=== PATIENT | male | born 1955 | race Caucasian/White ===

== ENCOUNTER 2018-04-26 19:27 | Emergency (ER) | payer MEDICAID, SELFPAY ==
[2018-04-26 19:51] LABS: Add Manual Diff / Slide Review NO; Basophils Percent Auto 1.1 % (0-2); Eosinophils Percent Auto 1.1 % (2-4); Hematocrit 45.6 % (41-53); Hemoglobin 14.8 g/dL (13.5-17.5); Lymphocytes Percent Auto 59.3 % (25-40); Mean Corpuscular HGB Conc 32.6 % (30-36); Mean Corpuscular Hemoglobin 29.7 PG (26-34); Mean Corpuscular Volume 91.3 fL (80-100); Neutrophils Absolute Auto 4200 /uL (1500-7000); Neutrophils Percent Auto 33.5 % (50-75); Platelet Count 189 X10^3/uL (150-400); Red Blood Cell Count 4.99 X10^6/uL (4.5-5.9); Red Cell Distribution Width 13.8 % (11.6-14.8); White Blood Cell Count 12.5 X10^3/uL (4.5-11.0)
[2018-04-26 20:05] LABS: Alanine Aminotransferase 345 IU/L (21-72); Albumin 3.7 g/dL (3.5-5.0); Albumin Globulin Ratio 1.5 (1.0-2.8); Alkaline Phosphatase 68 U/L (38-126); Aspartate Aminotransferase 226 IU/L (17-59); BUN Creatinine Ratio 15.4 (6-22); Bilirubin Total 0.4 mg/dL (0.2-1.3); Blood Urea Nitrogen 20 mg/dL (9-20); Calcium 9.9 mg/dL (8.4-10.2); Carbon Dioxide 22 mmol/L (22-32); Chloride 105 mmol/L (98-107); Estimated Glomerular Filt Rate 55.6 mL/min (>60); Globulin 2.5 g/dL (1.7-4.1); Glucose 254 mg/dL (80-110); HEMOLYSIS 33 (0-50); Magnesium 2.6 mg/dL (1.6-2.3); Potassium 2.8 mmol/L (3.4-5.1); Sodium 140 mmol/L (137-145); Total Protein 6.2 g/dL (6.3-8.2)
--- NOTE | 2018-04-26 20:20 | ED.CPR ---
HPI - CPR General Chief Complaint: Unresponsive Stated Complaint: Unresponsive,cpr in progress Time Seen by Provider: 04/26/18 19:48 Source: family and EMS Mode of arrival: EMS Limitations: physical limitation History of Present Illness HPI narrative: 63M presents with EMS performing CPR. He was in his normal state of health while driving to a grocery store with his when he made an abnormal sound and then passed out. EMS was called and arrived within 2 min., 1st rhythm was VFib and patient was taken down ACLS protocol. He had 3 defibrillations prior to his arrival and 3 rounds of epinephrine. Amiodarone was administered prior to his arrival. CPR was in progress on arrival of patient has no significant medical history. No known cardiac history. No recent travel or recent illness. Only medication is losartan 100 mg. No recent changes in medications. No drug history. No recent surgeries. Majority of history obtained from at bedside. Patient had been taken through a total of 27 min of ACLS, all pulse checks in department were PE a until and organized rhythm with a pulse was noted in the 70s. His end-tidal bumped to the 30s and his skin pain cup and he became on mottled. Amiodarone drip was administered. Patient was intubated and IO placed complaint: found unresponsive Timing confirmed by: spouse Bystander CPR performed: No Downtime before ACLS arrival (mins): 2 Initial findings in the field: unresponsive ROSC in the field: No Known history of: other Treatments prior to arrival: intubation, chest compressions, defibrillated shocks #, epinephrine mgs # and amiodarone Related Data Home Medications Medication Instructions Recorded Confirmed losartan 100 mg tablet 100 mg PO DAILY 08/22/17 08/22/17 Previous Rx's Medication Instructions Recorded azithromycin 250 mg tablet See Label Instructions PO .COMPLEX 08/22/17 #6 tab Allergies Allergy/AdvReac Type Severity Reaction Status Date / Time Penicillins [PENICILLINS] Allergy Unknown Unverified 07/26/17 20:36 Review of Systems Review of Systems ROS Unobtainable: All systems reviewed & are unremarkable except as noted in HPI and below, Unobtainable due to medical condition and Unobtainable due to mental status/LOC Exam Narrative Exam Narrative: GENERAL: 63-year-old male, critically ill, intubated CPR in progress, mottling of extremities and abdomen HEAD: Atraumatic. Normocephalic. No temporal or scalp tenderness. EYES: Pupils equal round.No scleral icterus. No injection or drainage. ENT: Nose without bleeding, purulent drainage or septal hematoma. Throat without erythema, tonsillar hypertrophy or exudate. Uvula midline. Airway patent. NECK: Trachea midline. No JVD or lymphadenopathy. Supple, nontender, no meningeal signs. CARDIOVASCULAR: Asytole. CPR in progress RESPIRATORY: Clear to auscultation. Breath sounds equal bilaterally. No wheezes, rales, or rhonchi. Mechanical ventilation GASTROINTESTINAL: Abdomen soft, non-tender, nondistended. No hepato-splenomegaly, or palpable masses. No guarding. EXTREMITIES: No clubbing, cyanosis, or edema. No joint tenderness, effusion, or edema noted. BACK: Nontender without deformity or crepitance. No flank tenderness. NEURO: Sedated. on vent SKIN: mottling [facility] Medical History HTN (hypertension) (Acute) Social History Smoking Status: Current every day smoker (1/2 to 1 pack daily) Course Orders Ordered: ED Orders 04/26/18 19:41 RT Consult Eval and Treat STAT 04/26/18 19:48 Complete Blood Count AUTO DIFF Stat Comprehensive Metabolic Panel Stat Magnesium Stat Consultations Consultation #1: call to [facility] ED regarding ROSC s/p VFib arrest. They are unable to accept after consulting with interventional cardiology whom state he will not get cath tonight and there are no available beds next call to [facility]. in ICU is happy to accept patient after discussion of his presentation. Request for heparin drip and cooling protocol. Goals are to maintain core temp <36C. Patient is demonstrating movement of all extremities, will be sedated with Propofol push and then ativan/fentanyl. Amiodarone drip hanging. MDM - Cardiac Arrest/CPR Differential Diagnosis Likely acute massive pulmonary embolism and acute myocardial infarction Lab Data Result diagrams: 04/26/18 19:48 04/26/18 19:48 Lab Results 04/26/18 04/26/18 Range/Units 19:48 19:48 WBC 12.5 H (4.5-11.0) X10^3/uL RBC 4.99 (4.5-5.9) X10^6/uL Hgb 14.8 (13.5-17.5) g/dL Hct 45.6 (41-53) % MCV 91.3 (80-100) fL MCH 29.7 (26-34) PG MCHC 32.6 (30-36) % RDW 13.8 (11.6-14.8) % Plt Count 189 (150-400) X10^3/uL Neut % (Auto) 33.5 L (50-75) % Lymph % (Auto) 59.3 H (25-40) % [place] % (Auto) 5.0 (3-14) % Eos % (Auto) 1.1 L (2-4) % Baso % (Auto) 1.1 (0-2) % Neut # (Auto) 4200 (5653-4116) /uL Sodium 140 (137-145) mmol/L Potassium 2.8 L (3.4-5.1) mmol/L Chloride 105 (98-107) mmol/L Carbon Dioxide 22 (22-32) mmol/L BUN 20 (9-20) mg/dL Creatinine 1.30 H (0.66-1.25) mg/dL Estimated GFR 55.6 L (>60) mL/min BUN/Creatinine Ratio 15.4 (6-22) Glucose 254 H (80-110) mg/dL Calcium 9.9 (8.4-10.2) mg/dL Magnesium 2.6 H (1.6-2.3) mg/dL Total Bilirubin 0.4 (0.2-1.3) mg/dL AST 226 H (17-59) IU/L ALT 345 H (21-72) IU/L Alkaline Phosphatase 68 (38-126) U/L Total Protein 6.2 L (6.3-8.2) g/dL Albumin 3.7 (3.5-5.0) g/dL Globulin 2.5 (1.7-4.1) g/dL Albumin/Globulin Ratio 1.5 (1.0-2.8) ECG Data Attestation: I personally reviewed and interpreted this ECG as follows: Prior ECG tracings: not available for review Interpretation: Atrial Fib @ 73, no ST elevations or obvious ischemic change Critical Care Time Critical Care Time: Yes Total Critical Care Time: 30 Attestation: The high probability of a clinically significant, sudden or life threatening deterioration of the [cardiovascular] system(s) required my full and direct attention, intervention and personal management. The aggregate critical care time was [30] minutes. This time is in addition to time spent performing reported procedures but includes the following: [x] Data Review and interpretation [x] Patient assessment and monitoring of vital signs [x] Documentation [x] Medication orders and management Discharge Plan Departure Patient Disposition: [facility] Clinical Impression: Cardiopulmonary arrest with successful resuscitation Prescriptions: No Action losartan 100 mg tablet 100 mg PO DAILY RF: 0 azithromycin 250 mg tablet See Label Instructions PO .COMPLEX Qty: 6 RF: 0
--- NOTE | 2018-04-26 20:29 | ED_ITS ---
HPI - CPR General Chief Complaint: Unresponsive Stated Complaint: Unresponsive,cpr in progress Time Seen by Provider: 04/26/18 19:48 Source: family and EMS Mode of arrival: EMS Limitations: physical limitation History of Present Illness HPI narrative: 63M presents with EMS performing CPR. He was in his normal state of health while driving to a grocery store with his when he made an abnormal sound and then passed out. EMS was called and arrived within 2 min., 1st rhythm was VFib and patient was taken down ACLS protocol. He had 3 defibrillations prior to his arrival and 3 rounds of epinephrine. Amiodarone was administered prior to his arrival. CPR was in progress on arrival of patient has no significant medical history. No known cardiac history. No recent travel or recent illness. Only medication is losartan 100 mg. No recent changes in medications. No drug history. No recent surgeries. Majority of history obtained from at bedside. Patient had been taken through a total of 27 min of ACLS, all pulse checks in department were PE a until and organized rhythm with a pulse was noted in the 70s. His end-tidal bumped to the 30s and his skin pain cup and he became on mottled. Amiodarone drip was administered. Patient was intubated and IO placed complaint: found unresponsive Timing confirmed by: spouse Bystander CPR performed: No Downtime before ACLS arrival (mins): 2 Initial findings in the field: unresponsive ROSC in the field: No Known history of: other Treatments prior to arrival: intubation, chest compressions, defibrillated shocks #, epinephrine mgs # and amiodarone Related Data Home Medications Medication Instructions Recorded Confirmed losartan 100 mg tablet 100 mg PO DAILY 08/22/17 08/22/17 Previous Rx's Medication Instructions Recorded azithromycin 250 mg tablet See Label Instructions PO .COMPLEX 08/22/17 #6 tab Allergies Allergy/AdvReac Type Severity Reaction Status Date / Time Penicillins [PENICILLINS] Allergy Unknown Unverified 07/26/17 20:36 Review of Systems Review of Systems ROS Unobtainable: All systems reviewed & are unremarkable except as noted in HPI and below, Unobtainable due to medical condition and Unobtainable due to mental status/LOC Exam Narrative Exam Narrative: GENERAL: 63-year-old male, critically ill, intubated CPR in progress, mottling of extremities and abdomen HEAD: Atraumatic. Normocephalic. No temporal or scalp tenderness. EYES: Pupils equal round.No scleral icterus. No injection or drainage. ENT: Nose without bleeding, purulent drainage or septal hematoma. Throat without erythema, tonsillar hypertrophy or exudate. Uvula midline. Airway patent. NECK: Trachea midline. No JVD or lymphadenopathy. Supple, nontender, no meningeal signs. CARDIOVASCULAR: Asytole. CPR in progress RESPIRATORY: Clear to auscultation. Breath sounds equal bilaterally. No wheezes , rales, or rhonchi. Mechanical ventilation GASTROINTESTINAL: Abdomen soft, non-tender, nondistended. No hepato-splenomegaly , or palpable masses. No guarding. EXTREMITIES: No clubbing, cyanosis, or edema. No joint tenderness, effusion, or edema noted. BACK: Nontender without deformity or crepitance. No flank tenderness. NEURO: Sedated. on vent SKIN: mottling [facility] Medical History HTN (hypertension) (Acute) Social History Smoking Status: Current every day smoker (1/2 to 1 pack daily) Course Orders Ordered: ED Orders 04/26/18 19:41 RT Consult Eval and Treat STAT 04/26/18 19:48 Complete Blood Count AUTO DIFF Stat Comprehensive Metabolic Panel Stat Magnesium Stat Consultations Consultation #1: call to [facility] ED regarding ROSC s/p VFib arrest. They are unable to accept after consulting with interventional cardiology whom state he will not get cath tonight and there are no available beds next call to [facility]. in ICU is happy to accept patient after discussion of his presentation. Request for heparin drip and cooling protocol. Goals are to maintain core temp <36C. Patient is demonstrating movement of all extremities, will be sedated with Propofol push and then ativan/fentanyl. Amiodarone drip hanging. MDM - Cardiac Arrest/CPR Differential Diagnosis Likely acute massive pulmonary embolism and acute myocardial infarction Lab Data Result diagrams: 04/26/18 19:48 04/26/18 19:48 Lab Results 04/26/18 04/26/18 Range/Units 19:48 19:48 WBC 12.5 H (4.5-11.0) X10^3/uL RBC 4.99 (4.5-5.9) X10^6/uL Hgb 14.8 (13.5-17.5) g/dL Hct 45.6 (41-53) % MCV 91.3 (80-100) fL MCH 29.7 (26-34) PG MCHC 32.6 (30-36) % RDW 13.8 (11.6-14.8) % Plt Count 189 (150-400) X10^3/uL Neut % (Auto) 33.5 L (50-75) % Lymph % (Auto) 59.3 H (25-40) % [place] % (Auto) 5.0 (3-14) % Eos % (Auto) 1.1 L (2-4) % Baso % (Auto) 1.1 (0-2) % Neut # (Auto) 4200 (6548-8006) /uL Sodium 140 (137-145) mmol/L Potassium 2.8 L (3.4-5.1) mmol/L Chloride 105 (98-107) mmol/L Carbon Dioxide 22 (22-32) mmol/L BUN 20 (9-20) mg/dL Creatinine 1.30 H (0.66-1.25) mg/dL Estimated GFR 55.6 L (>60) mL/min BUN/Creatinine Ratio 15.4 (6-22) Glucose 254 H (80-110) mg/dL Calcium 9.9 (8.4-10.2) mg/dL Magnesium 2.6 H (1.6-2.3) mg/dL Total Bilirubin 0.4 (0.2-1.3) mg/dL AST 226 H (17-59) IU/L ALT 345 H (21-72) IU/L Alkaline Phosphatase 68 (38-126) U/L Total Protein 6.2 L (6.3-8.2) g/dL Albumin 3.7 (3.5-5.0) g/dL Globulin 2.5 (1.7-4.1) g/dL Albumin/Globulin Ratio 1.5 (1.0-2.8) ECG Data Attestation: I personally reviewed and interpreted this ECG as follows: Prior ECG tracings: not available for review Interpretation: Atrial Fib @ 73, no ST elevations or obvious ischemic change Critical Care Time Critical Care Time: Yes Total Critical Care Time: 30 Attestation: The high probability of a clinically significant, sudden or life threatening deterioration of the [cardiovascular] system(s) required my full and direct attention, intervention and personal management. The aggregate critical care time was [30] minutes. This time is in addition to time spent performing reported procedures but includes the following: [x] Data Review and interpretation [x] Patient assessment and monitoring of vital signs [x] Documentation [x] Medication orders and management Discharge Plan Departure Patient Disposition: [facility] Clinical Impression: Cardiopulmonary arrest with successful resuscitation Prescriptions: No Action losartan 100 mg tablet 100 mg PO DAILY RF: 0 azithromycin 250 mg tablet See Label Instructions PO .COMPLEX Qty: 6 RF: 0
[2018-04-26 21:10] VITALS: BP 129/80; PULSE 80; RESP 24; O2SAT 100
== END 2018-04-26 21:13 | disposition short-term general hospital (02) ==
PROVIDERS: Emergency Provider Emergency Medicine
DX: I46.9 Cardiac arrest, cause unspecified (principal)
CPT/HCPCS: 80053; 83735; 85025; 93005; 99282; 99291; 99292; J0171; J0282; J1644; J2060; J2704; J3010

== ENCOUNTER 2018-09-03 11:18 | Emergency (ER) | payer OTHER, MEDICAID, SELFPAY ==
[2018-09-03] VITALS (10 sets, daily range): BP systolic 133–160; BP diastolic 61–90; PULSE 64–79; RESP 14–22; TEMP 36.7; O2SAT 98–100
--- NOTE | 2018-09-03 11:26 | DI.RAD.S_ITS ---
PROCEDURE: XR CHEST 1V INDICATIONS: chest pain TECHNIQUE: One view of the chest was acquired. COMPARISON: None. FINDINGS: Surgical changes and devices: Prior CABG.. Lungs and pleura: Lungs are clear. No pleural effusions or pneumothorax. Mediastinum: Mediastinal contours appear normal. Heart size is normal. Bones and chest wall: No suspicious bony lesions. Overlying soft tissues appear unremarkable. IMPRESSION: Prior sternotomy wires, presumed prior CABG, no acute disease, source of chest pain is not seen. Dictated by: Guillaume Dumont M.D. on 09/03/2018 at 12:02 Approved by: Guillaume Dumont M.D. on 09/03/2018 at 12:02
[2018-09-03 11:39] LABS: Add Manual Diff / Slide Review NO; Basophils Absolute Auto 100 /uL (0-100); Eosinophils Absolute Auto 200 /uL (0-450); Eosinophils Percent Auto 2.7 % (2-4); Hemoglobin 13.8 g/dL (13.5-17.5); Lymphocytes Absolute Auto 2500 /uL (1100-4500); Lymphocytes Percent Auto 29.5 % (25-40); Mean Corpuscular HGB Conc 32.9 % (30-36); Mean Corpuscular Hemoglobin 27.9 PG (26-34); Monocytes Absolute Auto 600 /uL (0-900); Monocytes Percent Auto 7.1 % (3-14); Neutrophils Absolute Auto 5100 /uL (1500-7000); Neutrophils Percent Auto 59.7 % (50-75); Platelet Count 223 X10^3/uL (150-400); Red Blood Cell Count 4.94 X10^6/uL (4.5-5.9); Red Cell Distribution Width 15.5 % (11.6-14.8); White Blood Cell Count 8.6 X10^3/uL (4.5-11.0)
[2018-09-03 11:46] LABS: INR 1.3 (0.9-1.3); Prothrombin Time 15.2 SECONDS (10.1-12.7)
[2018-09-03 11:49] LABS: PTT Partial Thromboplastin Tim 31 SECONDS (26.4-36.2)
[2018-09-03 11:50] LABS: Alanine Aminotransferase 40 IU/L (21-72); Albumin 4.7 g/dL (3.5-5.0); Albumin Globulin Ratio 1.5 (1.0-2.8); Alkaline Phosphatase 94 U/L (38-126); Aspartate Aminotransferase 24 IU/L (17-59); BUN Creatinine Ratio 16.9 (6-22); Bilirubin Total 0.6 mg/dL (0.2-1.3); Blood Urea Nitrogen 22 mg/dL (9-20); Carbon Dioxide 29 mmol/L (22-32); Chloride 97 mmol/L (98-107); Creatine Kinase 66 U/L (55-170); Estimated Glomerular Filt Rate 55.6 mL/min (>60); Globulin 3.1 g/dL (1.7-4.1); Glucose 143 mg/dL (80-110); HEMOLYSIS < 15 (0-50); Lipase 47 U/L (23-300); Potassium 4.4 mmol/L (3.4-5.1); Sodium 136 mmol/L (137-145); Total Protein 7.8 g/dL (6.3-8.2)
[2018-09-03 12:02] LABS: Troponin I < 0.012 ng/mL (0.01-0.034)
[2018-09-03 14:37] LABS: Troponin I < 0.012 ng/mL (0.01-0.034)
--- NOTE | 2018-09-03 14:46 | ED.SYNCOPE ---
HPI - Syncope General Chief Complaint: Chest Pain Stated Complaint: chest Time Seen by Provider: 09/03/18 14:22 Source: patient Mode of arrival: ambulatory Limitations: no limitations History of Present Illness HPI narrative: This is a 63-year-old male comes to the emergency department with complaint of lightheadedness, feeling sweaty and clammy and like he might pass out. Patient denies any chest pain or pressure denies any shortness of breath. He did feel nauseated. This occurred while he was at cardiac rehab. He states he spent some time on the elliptical machines, he was doing weightlifting and doing either bicep curls or rows with 5 lb weights. Patient states that he 69 headache, no vision changes. He states he did not pass out. He is feeling much better afterwards. Patient states that about a week ago he did have a little bit of dominant pain and had a headache but that resolved after a couple hours he has not had any further. He did not have much of a breakfast any states the 1 other time he has had this happen gandara in a similar situation he did have a cardiac arrest with CPR and return of circulation. This was in April on the . He had a CABG with 5 vessels on June 11. He quit smoking after his cardiac arrest in April. He has not had any alcohol since. He does not use any illicit. He sees Dr. Mazariegos for Cardiology through telling him and Dr. Degroot for primary care. Related Data Home Medications Medication Instructions Recorded Confirmed amlodipine 10 mg PO DAILY 09/03/18 09/03/18 apixaban [Eliquis] 5 mg PO BID 09/03/18 09/03/18 aspirin 81 mg PO DAILY 09/03/18 09/03/18 atorvastatin 80 mg PO QPM 09/03/18 09/03/18 losartan 6.25 mg PO QPM 09/03/18 09/03/18 magnesium oxide 400 mg PO BID 09/03/18 09/03/18 metformin 500 mg PO BID 09/03/18 09/03/18 metoprolol succinate 25 mg PO DAILY 09/03/18 09/03/18 Allergies Allergy/AdvReac Type Severity Reaction Status Date / Time Penicillins [PENICILLINS] Allergy Unknown Unverified 07/26/17 20:36 Review of Systems Review of Systems ROS Unobtainable: All systems reviewed & are unremarkable except as noted in HPI and below Constitutional Denies chills, Denies fever(s), Denies headache(s), Denies lethargy and Denies weakness ENT Ears, Nose, Mouth, and Throat: Denies headache(s) Cardiovascular Denies chest pain, Reports diaphoresis, Denies syncope, Denies edema, Denies irregular heart rhythm, Denies leg edema, Reports lightheadedness, Denies radiating jaw, neck or arm pain, Denies palpitations, Denies dyspnea, Denies dyspnea on exertion and Denies orthopnea Respiratory Denies change in phlegm color, Denies chest congestion, Denies cough, Denies dyspnea and Denies dyspnea on exertion Gastrointestinal Gastrointestinal: Denies abdominal pain, Denies change in bowel habits, Denies diarrhea, Reports nausea (Resolved) and Denies vomiting Genitourinary Denies hematuria, Denies flank pain and Denies urinary urgency Neurologic Reports as per HPI, Denies confusion, Denies syncope, Denies headache(s) and Denies weakness Psychiatric Denies confusion Endocrine Denies palpitations [facility] Medical History (Updated 09/03/18 @ 15:01 by Tiff Escobar DO) Cardiac arrest with successful resuscitation (Resolved) HTN (hypertension) (Acute) Surgical History (Updated 09/03/18 @ 11:26 by Lilli Sellers RN) S/P CABG x 5 (Acute) Social History (Updated 09/03/18 @ 14:53 by Tiff Escobar DO) Smoking Status: Former smoker alcohol intake: former substance use type: does not use Social History (Updated 09/03/18 @ 14:53 by Tiff Escobar DO) Smoking Status: Former smoker alcohol intake: former substance use type: does not use Exam Narrative Exam Narrative: GENERAL: Alert and oriented x three, well-nourished male in no acute distress. HEENT: Head normocephalic, atraumatic, EOMI, pupils reactive, face symmetric, moist mucous membranes NECK: Supple, full range of motion CARDIOVASCULAR: Regular rate and rhythm without murmurs, rubs or gallops. RESPIRATORY: Breath sounds equal bilaterally, no wheezes rales or rhonchi. ABDOMEN: Soft, nontender. Normoactive bowel sounds all 4 quadrants. No guarding or rebound, rigidity, no mass : No CVA tenderness EXTREMITIES: Normal range of motion, no clubbing or edema. Neurovascularly intact NEUROLOGICAL: Cranial nerves II through XII grossly intact. Moving all extremities SKIN: Warm, dry, no petechiae, no rashes or lesions. Initial Vital Signs Initial Vital Signs: Vital Signs Pulse Rate 73 09/03/18 11:20 Respiratory Rate 22 09/03/18 11:20 Blood Pressure 151/82 H 09/03/18 11:20 Pulse Oximetry 100 09/03/18 11:20 Scores GCS Fredy coma scale eye opening: Spontaneous Fredy coma scale verbal response: Orientated Fredy coma scale motor response: Obey commands [place] coma scale total score: 15 Course Orders Ordered: ED Orders 09/03/18 11:20 EKG-12 Lead Stat 09/03/18 11:26 XR chest 1V Stat 09/03/18 11:32 Complete Blood Count AUTO DIFF Stat Comprehensive Metabolic Panel Stat Lipase Stat Partial Thromboplastin Time Stat Prothrombin Time INR Stat Troponin & CK Cardiac Panel Stat 09/03/18 14:04 Trop I [Troponin I] Stat EKG-12 Lead Stat Vital Signs - 8 hr 09/03/18 11:20 09/03/18 11:26 09/03/18 11:30 Temperature 98.0 F Pulse Rate 73 68 Respiratory Rate 22 21 Blood Pressure 151/82 H Blood Pressure [Right Arm] 141/78 H Pulse Oximetry 100 99 09/03/18 12:00 09/03/18 12:30 09/03/18 13:00 Temperature Pulse Rate 67 64 73 Respiratory Rate 18 18 16 Blood Pressure Blood Pressure [Right Arm] 158/61 H 148/79 H 160/82 H Pulse Oximetry 98 98 100 09/03/18 13:30 09/03/18 14:00 09/03/18 14:32 Temperature Pulse Rate 74 78 79 Respiratory Rate 19 18 16 Blood Pressure Blood Pressure [Right Arm] 158/76 H 151/81 H 160/90 H Pulse Oximetry 98 98 100 09/03/18 15:12 Temperature Pulse Rate 73 Respiratory Rate 14 Blood Pressure 133/77 Blood Pressure [Right Arm] Pulse Oximetry 98 MDM - Syncope Lab Data Attestation: I reviewed the patient's lab results. Result diagrams: 09/03/18 11:32 09/03/18 11:32 Lab Results 09/03/18 09/03/18 09/03/18 Range/Units 11:32 11:32 11:32 WBC 8.6 (4.5-11.0) X10^3/uL RBC 4.94 (4.5-5.9) X10^6/uL Hgb 13.8 (13.5-17.5) g/dL Hct 42.0 (41-53) % MCV 85.0 (80-100) fL MCH 27.9 (26-34) PG MCHC 32.9 (30-36) % RDW 15.5 H (11.6-14.8) % Plt Count 223 (150-400) X10^3/uL Neut % (Auto) 59.7 (50-75) % Lymph % (Auto) 29.5 (25-40) % Bertie % (Auto) 7.1 (3-14) % Eos % (Auto) 2.7 (2-4) % Baso % (Auto) 1.0 (0-2) % Neut # (Auto) 5100 (7981-7579) /uL Lymph # (Auto) 2500 (8953-3545) /uL Bertie # (Auto) 600 (0-900) /uL Eos # (Auto) 200 (0-450) /uL Baso # (Auto) 100 (0-100) /uL PT 15.2 H (10.1-12.7) SECONDS INR 1.3 (0.9-1.3) APTT 31 (26.4-36.2) SECONDS Sodium 136 L (137-145) mmol/L Potassium 4.4 (3.4-5.1) mmol/L Chloride 97 L (98-107) mmol/L Carbon Dioxide 29 (22-32) mmol/L BUN 22 H (9-20) mg/dL Creatinine 1.30 H (0.66-1.25) mg/dL Estimated GFR 55.6 L (>60) mL/min BUN/Creatinine Ratio 16.9 (6-22) Glucose 143 H (80-110) mg/dL Calcium 10.0 (8.4-10.2) mg/dL Total Bilirubin 0.6 (0.2-1.3) mg/dL AST 24 (17-59) IU/L ALT 40 (21-72) IU/L Alkaline Phosphatase 94 (38-126) U/L Total Creatine Kinase 66 (55-170) U/L CK-MB (CK-2) TNP CK-MB (CK-2) Rel Index TNP Troponin I < 0.012 (0.01-0.034) ng/mL Total Protein 7.8 (6.3-8.2) g/dL Albumin 4.7 (3.5-5.0) g/dL Globulin 3.1 (1.7-4.1) g/dL Albumin/Globulin Ratio 1.5 (1.0-2.8) Lipase 47 (23-300) U/L // Range/Units 14:04 WBC (4.5-11.0) X10^3/uL RBC (4.5-5.9) X10^6/uL Hgb (13.5-17.5) g/dL Hct (41-53) % MCV (80-100) fL MCH (26-34) PG MCHC (30-36) % RDW (11.6-14.8) % Plt Count (150-400) X10^3/uL Neut % (Auto) (50-75) % Lymph % (Auto) (25-40) % Bertie % (Auto) (3-14) % Eos % (Auto) (2-4) % Baso % (Auto) (0-2) % Neut # (Auto) (8942-8225) /uL Lymph # (Auto) (4610-2589) /uL Bertie # (Auto) (0-900) /uL Eos # (Auto) (0-450) /uL Baso # (Auto) (0-100) /uL PT (10.1-12.7) SECONDS INR (0.9-1.3) APTT (26.4-36.2) SECONDS Sodium (137-145) mmol/L Potassium (3.4-5.1) mmol/L Chloride (98-107) mmol/L Carbon Dioxide (22-32) mmol/L BUN (9-20) mg/dL Creatinine (0.66-1.25) mg/dL Estimated GFR (>60) mL/min BUN/Creatinine Ratio (6-22) Glucose (80-110) mg/dL Calcium (8.4-10.2) mg/dL Total Bilirubin (0.2-1.3) mg/dL AST (17-59) IU/L ALT (21-72) IU/L Alkaline Phosphatase (38-126) U/L Total Creatine Kinase (55-170) U/L CK-MB (CK-2) CK-MB (CK-2) Rel Index Troponin I < 0.012 (0.01-0.034) ng/mL Total Protein (6.3-8.2) g/dL Albumin (3.5-5.0) g/dL Globulin (1.7-4.1) g/dL Albumin/Globulin Ratio (1.0-2.8) Lipase (23-300) U/L Imaging Data Chest x-ray: Radiologist's impression: [address] [id number] XRay Report Signed Patient: Duc Hughes RMR#: [id number] : 4Acct:[id number] Age/Sex: 63 / MDate of Service: 09/03/18 Loc: ED Accession Number: [id number] Procedure: XR chest 1V Ordering Provider: Tiff Escobar D.O. PROCEDURE: XR CHEST 1V INDICATIONS: chest pain TECHNIQUE: One view of the chest was acquired. COMPARISON: None. FINDINGS: Surgical changes and devices: Prior CABG.. Lungs and pleura: Lungs are clear. No pleural effusions or pneumothorax. Mediastinum: Mediastinal contours appear normal. Heart size is normal. Bones and chest wall: No suspicious bony lesions. Overlying soft tissues appear unremarkable. IMPRESSION: Prior sternotomy wires, presumed prior CABG, no acute disease, source of chest pain is not seen. Dictated by: Guillaume Dumont M.D. on 09/03/2018 at 12:02 Approved by: Guillaume Dumont M.D. on 09/03/2018 at 12:02 ECG Data Attestation: I personally reviewed and interpreted this ECG as follows: Prior ECG tracings: available for review Interpretation: Sinus rhythm with first-degree AV block with a rate of 71 P are interval 235 QRS of 112 and QTC of 448. Patient has Q-waves in 2 3 AVF along with T-wave inversions in 2 3 AVF and V5 V6. Patient has a prior EKG from July 10, 2018 from his cardiology office. This EKG appears similar to today's with no new changes. EKG 2. Appears similar to the 1st to with a sinus rhythm with first-degree AV block. Patient has a rate of 73, P are 267 QRS of 112 and QTC of 455. Patient has Q-waves in 2 3 and AVF. T-wave inversion in to 3 and AVF along with V5 V6. No ST elevation noted in either EKGs an EKG appears similar to prior. MDM Narrative Medical decision making narrative: Patient is feeling much better. Lab work does not show any acute changes to his renal function. Normal electrolytes except for sodium 136 chloride 97, BUN slightly elevated at 22, CBC does not show any acute anemia or leukocytosis. Patient's glucose is would 43, LFTs and troponin x2 are normal. Patient's chest x-ray does not show any acute changes does show changes consistent with his prior sternotomy. Discussed with patient he was able to ambulate back and forth to the bathroom without any major issue. He has not had any chest pain or shortness of breath, he had lightheadedness but no true syncope. Without any other acute findings plan for DC home but I did ask him to contact his corporate event planner to make sure they want him to continue with his rehab. He has an appointment on the 12 of September and I asked him did chat with them to see if they would like him to be seen sooner. Discharge Plan Departure Patient Disposition: Home Clinical Impression: Lightheadedness Discharge Date/Time: 09/03/18 15:13 Interventions: ED Discharge Assessment Last Done: 09/03/18 15:12 Instructions: DI for Syncope in Adults (Fainting) Activity Restrictions/Additional Instructions: Call to set up follow-up with your corporate event planner, ask if they would like you to be seen sooner. Also discuss if they would like any modifications to your cardiac rehab were if you can return to your normal schedule. Continue your home medications as prescribed. Return to the emergency department for fevers greater than 100.4 F, recurrent symptoms, passing out, persistent vomiting, new chest pain, back pain or abdominal pain, black or bloody stools or other new or concerning symptoms. Prescriptions: No Action metformin 500 mg tablet 500 mg PO BID RF: 0 atorvastatin 80 mg tablet 80 mg PO QPM RF: 0 aspirin 81 mg tablet,delayed release (DR/EC) 81 mg PO DAILY RF: 0 magnesium oxide 400 mg (241.3 mg magnesium) tablet 400 mg PO BID RF: 0 amlodipine 10 mg tablet 10 mg PO DAILY RF: 0 losartan 25 mg tablet 6.25 mg PO QPM RF: 0 metoprolol succinate 25 mg tablet extended release 24 hr 25 mg PO DAILY RF: 0 Eliquis 5 mg tablet 5 mg PO BID RF: 0 Referrals: Arturo Regalado MD [Primary Care Provider] -
--- NOTE | 2018-09-03 15:01 | ED_ITS ---
HPI - Syncope General Chief Complaint: Chest Pain Stated Complaint: chest Time Seen by Provider: 09/03/18 14:22 Source: patient Mode of arrival: ambulatory Limitations: no limitations History of Present Illness HPI narrative: This is a 63-year-old male comes to the emergency department with complaint of lightheadedness, feeling sweaty and clammy and like he might pass out. Patient denies any chest pain or pressure denies any shortness of breath. He did feel nauseated. This occurred while he was at cardiac rehab. He states he spent some time on the elliptical machines, he was doing weightlifting and doing either bicep curls or rows with 5 lb weights. Patient states that he 69 headache, no vision changes. He states he did not pass out. He is feeling much better afterwards. Patient states that about a week ago he did have a little bit of dominant pain and had a headache but that resolved after a couple hours he has not had any further. He did not have much of a breakfast any states the 1 other time he has had this happen gandara in a similar situation he did have a cardiac arrest with CPR and return of circulation. This was in April on the . He had a CABG with 5 vessels on June 11. He quit smoking after his cardiac arrest in April. He has not had any alcohol since. He does not use any illicit. He sees Dr. Mazariegos for Cardiology through telling him and Dr. Degroot for primary care. Related Data Home Medications Medication Instructions Recorded Confirmed amlodipine 10 mg PO DAILY 09/03/18 09/03/18 apixaban [Eliquis] 5 mg PO BID 09/03/18 09/03/18 aspirin 81 mg PO DAILY 09/03/18 09/03/18 atorvastatin 80 mg PO QPM 09/03/18 09/03/18 losartan 6.25 mg PO QPM 09/03/18 09/03/18 magnesium oxide 400 mg PO BID 09/03/18 09/03/18 metformin 500 mg PO BID 09/03/18 09/03/18 metoprolol succinate 25 mg PO DAILY 09/03/18 09/03/18 Allergies Allergy/AdvReac Type Severity Reaction Status Date / Time Penicillins [PENICILLINS] Allergy Unknown Unverified 07/26/17 20:36 Review of Systems Review of Systems ROS Unobtainable: All systems reviewed & are unremarkable except as noted in HPI and below Constitutional Denies chills, Denies fever(s), Denies headache(s), Denies lethargy and Denies weakness ENT Ears, Nose, Mouth, and Throat: Denies headache(s) Cardiovascular Denies chest pain, Reports diaphoresis, Denies syncope, Denies edema, Denies irregular heart rhythm, Denies leg edema, Reports lightheadedness, Denies radiating jaw, neck or arm pain, Denies palpitations, Denies dyspnea, Denies dyspnea on exertion and Denies orthopnea Respiratory Denies change in phlegm color, Denies chest congestion, Denies cough, Denies dyspnea and Denies dyspnea on exertion Gastrointestinal Gastrointestinal: Denies abdominal pain, Denies change in bowel habits, Denies diarrhea, Reports nausea (Resolved) and Denies vomiting Genitourinary Denies hematuria, Denies flank pain and Denies urinary urgency Neurologic Reports as per HPI, Denies confusion, Denies syncope, Denies headache(s) and Denies weakness Psychiatric Denies confusion Endocrine Denies palpitations [facility] Medical History (Updated 09/03/18 @ 15:01 by Tiff Escobar DO) Cardiac arrest with successful resuscitation (Resolved) HTN (hypertension) (Acute) Surgical History (Updated 09/03/18 @ 11:26 by Lilli Sellers RN) S/P CABG x 5 (Acute) Social History (Updated 09/03/18 @ 14:53 by Tiff Escobar DO) Smoking Status: Former smoker alcohol intake: former substance use type: does not use Social History (Updated 09/03/18 @ 14:53 by Tiff Escobar DO) Smoking Status: Former smoker alcohol intake: former substance use type: does not use Exam Narrative Exam Narrative: GENERAL: Alert and oriented x three, well-nourished male in no acute distress. HEENT: Head normocephalic, atraumatic, EOMI, pupils reactive, face symmetric, moist mucous membranes NECK: Supple, full range of motion CARDIOVASCULAR: Regular rate and rhythm without murmurs, rubs or gallops. RESPIRATORY: Breath sounds equal bilaterally, no wheezes rales or rhonchi. ABDOMEN: Soft, nontender. Normoactive bowel sounds all 4 quadrants. No guarding or rebound, rigidity, no mass : No CVA tenderness EXTREMITIES: Normal range of motion, no clubbing or edema. Neurovascularly intact NEUROLOGICAL: Cranial nerves II through XII grossly intact. Moving all extremities SKIN: Warm, dry, no petechiae, no rashes or lesions. Initial Vital Signs Initial Vital Signs: Vital Signs Pulse Rate 73 09/03/18 11:20 Respiratory Rate 22 09/03/18 11:20 Blood Pressure 151/82 H 09/03/18 11:20 Pulse Oximetry 100 09/03/18 11:20 Scores GCS Fredy coma scale eye opening: Spontaneous Fredy coma scale verbal response: Orientated Fredy coma scale motor response: Obey commands Costilla coma scale total score: 15 Course Orders Ordered: ED Orders 09/03/18 11:20 EKG-12 Lead Stat 09/03/18 11:26 XR chest 1V Stat 09/03/18 11:32 Complete Blood Count AUTO DIFF Stat Comprehensive Metabolic Panel Stat Lipase Stat Partial Thromboplastin Time Stat Prothrombin Time INR Stat Troponin & CK Cardiac Panel Stat 09/03/18 14:04 Trop I [Troponin I] Stat EKG-12 Lead Stat Vital Signs - 8 hr 09/03/18 11:20 09/03/18 11:26 09/03/18 11:30 Temperature 98.0 F Pulse Rate 73 68 Respiratory Rate 22 21 Blood Pressure 151/82 H Blood Pressure [Right Arm] 141/78 H Pulse Oximetry 100 99 09/03/18 12:00 09/03/18 12:30 09/03/18 13:00 Temperature Pulse Rate 67 64 73 Respiratory Rate 18 18 16 Blood Pressure Blood Pressure [Right Arm] 158/61 H 148/79 H 160/82 H Pulse Oximetry 98 98 100 09/03/18 13:30 09/03/18 14:00 09/03/18 14:32 Temperature Pulse Rate 74 78 79 Respiratory Rate 19 18 16 Blood Pressure Blood Pressure [Right Arm] 158/76 H 151/81 H 160/90 H Pulse Oximetry 98 98 100 09/03/18 15:12 Temperature Pulse Rate 73 Respiratory Rate 14 Blood Pressure 133/77 Blood Pressure [Right Arm] Pulse Oximetry 98 MDM - Syncope Lab Data Attestation: I reviewed the patient's lab results. Result diagrams: 09/03/18 11:32 09/03/18 11:32 Lab Results 09/03/18 09/03/18 09/03/18 Range/Units 11:32 11:32 11:32 WBC 8.6 (4.5-11.0) X10^3/uL RBC 4.94 (4.5-5.9) X10^6/uL Hgb 13.8 (13.5-17.5) g/dL Hct 42.0 (41-53) % MCV 85.0 (80-100) fL MCH 27.9 (26-34) PG MCHC 32.9 (30-36) % RDW 15.5 H (11.6-14.8) % Plt Count 223 (150-400) X10^3/uL Neut % (Auto) 59.7 (50-75) % Lymph % (Auto) 29.5 (25-40) % [place] % (Auto) 7.1 (3-14) % Eos % (Auto) 2.7 (2-4) % Baso % (Auto) 1.0 (0-2) % Neut # (Auto) 5100 (8169-8528) /uL Lymph # (Auto) 2500 (2161-8779) /uL [place]ard # (Auto) 600 (0-900) /uL Eos # (Auto) 200 (0-450) /uL Baso # (Auto) 100 (0-100) /uL PT 15.2 H (10.1-12.7) SECONDS INR 1.3 (0.9-1.3) APTT 31 (26.4-36.2) SECONDS Sodium 136 L (137-145) mmol/L Potassium 4.4 (3.4-5.1) mmol/L Chloride 97 L (98-107) mmol/L Carbon Dioxide 29 (22-32) mmol/L BUN 22 H (9-20) mg/dL Creatinine 1.30 H (0.66-1.25) mg/dL Estimated GFR 55.6 L (>60) mL/min BUN/Creatinine Ratio 16.9 (6-22) Glucose 143 H (80-110) mg/dL Calcium 10.0 (8.4-10.2) mg/dL Total Bilirubin 0.6 (0.2-1.3) mg/dL AST 24 (17-59) IU/L ALT 40 (21-72) IU/L Alkaline Phosphatase 94 (38-126) U/L Total Creatine Kinase 66 (55-170) U/L CK-MB (CK-2) TNP CK-MB (CK-2) Rel Index TNP Troponin I < 0.012 (0.01-0.034) ng/mL Total Protein 7.8 (6.3-8.2) g/dL Albumin 4.7 (3.5-5.0) g/dL Globulin 3.1 (1.7-4.1) g/dL Albumin/Globulin Ratio 1.5 (1.0-2.8) Lipase 47 (23-300) U/L // Range/Units 14:04 WBC (4.5-11.0) X10^3/uL RBC (4.5-5.9) X10^6/uL Hgb (13.5-17.5) g/dL Hct (41-53) % MCV (80-100) fL MCH (26-34) PG MCHC (30-36) % RDW (11.6-14.8) % Plt Count (150-400) X10^3/uL Neut % (Auto) (50-75) % Lymph % (Auto) (25-40) % [place] % (Auto) (3-14) % Eos % (Auto) (2-4) % Baso % (Auto) (0-2) % Neut # (Auto) (4747-3171) /uL Lymph # (Auto) (2759-0533) /uL Seward # (Auto) (0-900) /uL Eos # (Auto) (0-450) /uL Baso # (Auto) (0-100) /uL PT (10.1-12.7) SECONDS INR (0.9-1.3) APTT (26.4-36.2) SECONDS Sodium (137-145) mmol/L Potassium (3.4-5.1) mmol/L Chloride (98-107) mmol/L Carbon Dioxide (22-32) mmol/L BUN (9-20) mg/dL Creatinine (0.66-1.25) mg/dL Estimated GFR (>60) mL/min BUN/Creatinine Ratio (6-22) Glucose (80-110) mg/dL Calcium (8.4-10.2) mg/dL Total Bilirubin (0.2-1.3) mg/dL AST (17-59) IU/L ALT (21-72) IU/L Alkaline Phosphatase (38-126) U/L Total Creatine Kinase (55-170) U/L CK-MB (CK-2) CK-MB (CK-2) Rel Index Troponin I < 0.012 (0.01-0.034) ng/mL Total Protein (6.3-8.2) g/dL Albumin (3.5-5.0) g/dL Globulin (1.7-4.1) g/dL Albumin/Globulin Ratio (1.0-2.8) Lipase (23-300) U/L Imaging Data Chest x-ray: Radiologist's impression: [address] [address] XRay Report Signed Patient: Duc Hughes RMR#: [id number] : 4Acct:[id number] Age/Sex: 63 / MDate of Service: 09/03/18 Loc: ED Accession Number: [id number] Procedure: XR chest 1V Ordering Provider: Tiff Escobar D.O. PROCEDURE: XR CHEST 1V INDICATIONS: chest pain TECHNIQUE: One view of the chest was acquired. COMPARISON: None. FINDINGS: Surgical changes and devices: Prior CABG.. Lungs and pleura: Lungs are clear. No pleural effusions or pneumothorax. Mediastinum: Mediastinal contours appear normal. Heart size is normal. Bones and chest wall: No suspicious bony lesions. Overlying soft tissues appear unremarkable. IMPRESSION: Prior sternotomy wires, presumed prior CABG, no acute disease, source of chest pain is not seen. Dictated by: Guillaume Dumont M.D. on 09/03/2018 at 12:02 Approved by: Guillaume Dumont M.D. on 09/03/2018 at 12:02 ECG Data Attestation: I personally reviewed and interpreted this ECG as follows: Prior ECG tracings: available for review Interpretation: Sinus rhythm with first-degree AV block with a rate of 71 P are interval 235 QRS of 112 and QTC of 448. Patient has Q-waves in 2 3 AVF along with T-wave inversions in 2 3 AVF and V5 V6. Patient has a prior EKG from July 10, 2018 from his cardiology office. This EKG appears similar to today's with no new changes. EKG 2. Appears similar to the 1st to with a sinus rhythm with first-degree AV block. Patient has a rate of 73, P are 267 QRS of 112 and QTC of 455. Patient has Q-waves in 2 3 and AVF. T-wave inversion in to 3 and AVF along with V5 V6. No ST elevation noted in either EKGs an EKG appears similar to prior. MDM Narrative Medical decision making narrative: Patient is feeling much better. Lab work does not show any acute changes to his renal function. Normal electrolytes except for sodium 136 chloride 97, BUN slightly elevated at 22, CBC does not show any acute anemia or leukocytosis. Patient's glucose is would 43, LFTs and troponin x2 are normal. Patient's chest x-ray does not show any acute changes does show changes consistent with his prior sternotomy. Discussed with patient he was able to ambulate back and forth to the bathroom without any major issue. He has not had any chest pain or shortness of breath, he had lightheadedness but no true syncope. 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 He has an appointment on the 12 of September and I asked him did chat with them to see if they would like him to be seen sooner. Discharge Plan Departure Patient Disposition: Home Clinical Impression: Lightheadedness Discharge Date/Time: 09/03/18 15:13 Interventions: ED Discharge Assessment Last Done: 09/03/18 15:12 Instructions: DI for Syncope in Adults (Fainting) Activity Restrictions/Additional Instructions: Call to set up follow-up with your wax pattern assembler, ask if they would like you to b e seen sooner. Also discuss if they would like any modifications to your cardiac rehab were if you can return to your normal schedule. Continue your home medications as prescribed. Return to the emergency department for fevers greater than 100.4 F, recurrent symptoms, passing out, persistent vomiting, new chest pain, back pain or abdominal pain, black or bloody stools or other new or concerning symptoms. Prescriptions: No Action metformin 500 mg tablet 500 mg PO BID RF: 0 atorvastatin 80 mg tablet 80 mg PO QPM RF: 0 aspirin 81 mg tablet,delayed release (DR/EC) 81 mg PO DAILY RF: 0 magnesium oxide 400 mg (241.3 mg magnesium) tablet 400 mg PO BID RF: 0 amlodipine 10 mg tablet 10 mg PO DAILY RF: 0 losartan 25 mg tablet 6.25 mg PO QPM RF: 0 metoprolol succinate 25 mg tablet extended release 24 hr 25 mg PO DAILY RF: 0 Eliquis 5 mg tablet 5 mg PO BID RF: 0 Referrals: Arturo Regalado MD [Primary Care Provider] -
== END 2018-09-03 15:13 | disposition home or self-care (01) ==
PROVIDERS: Emergency Provider Emergency Medicine; PCP Internal Medicine
DX: R55 Syncope and collapse (principal); R00.0 Tachycardia, unspecified; Z95.1 Presence of aortocoronary bypass graft
CPT/HCPCS: 36415; 36591; 71045; 80053; 82550; 83690; 84484; 85025; 85610; 85730; 93005; 93010; 99284; 99285

== ENCOUNTER 2018-09-19 10:00 | Outpatient (RCR) | payer OTHER, MEDICAID, SELFPAY | END 2018-10-01 11:23 | disposition home or self-care (01) | LOC: CAR 10:00 | PROVIDERS: Visit Provider Specialist | DX: Z95.1 Presence of aortocoronary bypass graft (principal) | CPT/HCPCS: 93798 ==

== ENCOUNTER 2019-01-23 03:29 | Emergency (ER) | payer OTHER, MEDICAID, SELFPAY ==
[2019-01-23 03:35] VITALS: BP 118/99; PULSE 73; RESP 18; O2SAT 88; BMI 28.4
--- NOTE | 2019-01-23 03:41 | ED_ITS ---
HPI - General Adult General Chief complaint: Shortness of Breath/Dyspnea Stated complaint: difficulty breathing Time Seen by Provider: 01/23/19 03:40 Source: patient Mode of arrival: Ambulatory Limitations: no limitations History of Present Illness HPI narrative: Patient is a 63-year-old male. Has known coronary artery disease. Back in April of this year underwent a VFib arrest with CPR with return of spontaneous circulation. In May underwent a multivessel coronary artery bypass graft. Since then has had some episodes of atrial fibrillation. Is on Eliquis. Comes the emergency department today for shortness of breath. Patient states that it started last evening. He was sitting on the couch. Was not a sudden onset but it did increase in a fairly short period of time. No chest pain. No lower extremity swelling. he no longer smokes. And has not for several months. No history of COPD. No diagnosis of CHF. States he has been taking his medications. He stated that yesterday he thought maybe he ?over exerted ?himself while he was at work. 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 Has not tried anything for symptoms prior to arrival Related Data Home Medications Medication Instructions Recorded Confirmed amlodipine 10 mg PO DAILY 09/03/18 09/03/18 apixaban [Eliquis] 5 mg PO BID 09/03/18 09/03/18 aspirin 81 mg PO DAILY 09/03/18 09/03/18 atorvastatin 80 mg PO QPM 09/03/18 09/03/18 losartan 6.25 mg PO QPM 09/03/18 09/03/18 magnesium oxide 400 mg PO BID 09/03/18 09/03/18 metformin 500 mg PO BID 09/03/18 09/03/18 metoprolol succinate 25 mg PO DAILY 09/03/18 09/03/18 Previous Rx's Medication Instructions Recorded furosemide [Lasix] 20 mg PO DAILY #30 tab 01/23/19 Allergies Allergy/AdvReac Type Severity Reaction Status Date / Time Penicillins [PENICILLINS] Allergy Unknown Unverified 07/26/17 20:36 Review of Systems Constitutional Constitutional: Denies fever(s) and Denies headache(s) ENT Ears, Nose, Mouth, and Throat: Denies vertigo, Denies dizziness and Denies headache(s) Cardiovascular Cardiovascular: Denies chest pain and Reports dyspnea Respiratory Respiratory: Denies cough and Reports dyspnea Gastrointestinal Gastrointestinal: Denies abdominal pain, Denies nausea and Denies vomiting Musculoskeletal Musculoskeletal: Denies myalgias and Denies arthralgias Integumentary/Breasts Skin/Breast: Denies lesions and Denies rash Neurologic Neurologic: Denies behavioral changes, Denies vertigo, Denies dizziness and Denies headache(s) Psychiatric Psychiatric: Denies behavioral changes Hematologic/Lymphatic Hematologic/Lymphatic: Denies easy bleeding and Denies easy bruising Allergic/Immunologic Allergic/Immunologic: Denies urticaria [facility] Medical History (Updated 01/23/19 @ 09:15 by Agusto Tran DO) Cardiac arrest with successful resuscitation (Resolved) Diabetes (Acute) HTN (hypertension) (Acute) Paroxysmal atrial fibrillation (Acute) Surgical History S/P CABG x 5 (Acute) Social History Smoking Status: Current every day smoker alcohol intake: former substance use type: does not use Social History Smoking Status: Current every day smoker alcohol intake: former substance use type: does not use Exam Initial Vital Signs Initial Vital Signs: Vital Signs Pulse Rate 73 01/23/19 03:35 Respiratory Rate 18 01/23/19 03:35 Blood Pressure 118/99 H 01/23/19 03:35 Pulse Oximetry 88 L 01/23/19 03:35 Const General: cooperative, well developed and well groomed Orientation: alert, awake and oriented x3 HENMT Head: normal to inspection and normocephalic Resp Effort & Inspection: cough, labored and tachypneic Auscultation: diminished lung sounds Cardio Rate: regular rate Rhythm: abnormal rhythm Pulses: radial pulses present GI Inspection: non-distended Palpation: soft, No firm and No tender Skin Lesions: no lesions Rashes: no rashes Neuro General: alert and awake Cognition: normal cognition Speech: speech normal Motor: muscle tone normal throughout Extrem General: normal to inspection, capillary refill normal and No edema Psych Appearance: grossly normal and well kempt Course Orders Ordered: ED Orders 01/23/19 03:41 XR chest 1V Stat EKG-12 Lead Stat 01/23/19 03:52 B Type Natriuretic Peptide Stat Basic Metabolic Panel Stat Complete Blood Count AUTO DIFF Stat Partial Thromboplastin Time Stat Prothrombin Time INR Stat Troponin I Stat 01/23/19 05:09 EKG-12 Lead Stat 01/23/19 06:17 Troponin I Stat 01/23/19 06:36 CT angio chest PE protocol Stat Discontinued Medications Albuterol (Ventolin) 5 mg INH NOW ONE Stop: 01/23/19 04:03 Last Admin: 01/23/19 04:06 Dose: 5 mg Documented by: JEAN Albuterol/Ipratropium (Duoneb) 3 ml INH NOW ONE Stop: 01/23/19 04:22 Last Admin: 01/23/19 04:25 Dose: 3 ml Documented by: JEAN Furosemide (Lasix) 40 mg IV NOW ONE Stop: 01/23/19 08:59 Last Admin: 01/23/19 09:08 Dose: 40 mg Documented by: CUCO Sodium Chloride (Normal Saline 0.9%) 1,000 mls @ 500 mls/hr IV BOLUS ONE Stop: 01/23/19 08:06 Last Infusion: 01/23/19 07:38 Dose: 0 mls/hr Documented by: Admin: 01/23/19 06:42 Dose: 500 mls/hr Documented by: JEAN Vital Signs Vital signs: Vital Signs - 8 hr 01/23/19 03:35 01/23/19 07:38 Pulse Rate 73 95 H Respiratory Rate 18 16 Blood Pressure 118/99 H Blood Pressure [Left Arm] 161/73 H Pulse Oximetry 88 L 95 Medical Decision Making Medical Records Medical records reviewed: Yes I reviewed the patient's medical records. Lab Data Lab results reviewed: Yes I reviewed the patient's lab results. Result diagrams: 01/23/19 03:52 01/23/19 03:52 Labs: Lab Results 01/23/19 01/23/19 01/23/19 Range/Units 03:52 03:52 03:52 WBC 9.1 (4.5-11.0) X10^3/uL RBC 4.57 (4.5-5.9) X10^6/uL Hgb 13.1 L (13.5-17.5) g/dL Hct 40.1 L (41-53) % MCV 87.7 (80-100) fL MCH 28.5 (26-34) PG MCHC 32.6 (30-36) % RDW 14.2 (11.6-14.8) % Plt Count 186 (150-400) X10^3/uL Neut % (Auto) 74.1 (50-75) % Lymph % (Auto) 17.1 L (25-40) % [place] % (Auto) 6.4 (3-14) % Eos % (Auto) 1.4 L (2-4) % Baso % (Auto) 1.0 (0-2) % Neut # (Auto) 6700 (1193-3293) /uL Lymph # (Auto) 1600 (4660-9182) /uL [place] # (Auto) 600 (0-900) /uL Eos # (Auto) 100 (0-450) /uL Baso # (Auto) 100 (0-100) /uL PT 12.7 (10.1-12.7) SECONDS INR 1.1 (0.9-1.3) APTT 32 (26.4-36.2) SECONDS Sodium 137 (137-145) mmol/L Potassium 4.8 (3.4-5.1) mmol/L Chloride 99 (98-107) mmol/L Carbon Dioxide 27 (22-32) mmol/L BUN 28 H (9-20) mg/dL Creatinine 1.20 (0.66-1.25) mg/dL Estimated GFR > 60.0 (>60) mL/min BUN/Creatinine Ratio 23.3 H (6-22) Glucose 221 H (80-110) mg/dL Calcium 9.4 (8.4-10.2) mg/dL Troponin I 0.014 (0.01-0.034) ng/mL B-Natriuretic Peptide 130 H (<100) 01/23/19 Range/Units 06:17 WBC (4.5-11.0) X10^3/uL RBC (4.5-5.9) X10^6/uL Hgb (13.5-17.5) g/dL Hct (41-53) % MCV (80-100) fL MCH (26-34) PG MCHC (30-36) % RDW (11.6-14.8) % Plt Count (150-400) X10^3/uL Neut % (Auto) (50-75) % Lymph % (Auto) (25-40) % [place] % (Auto) (3-14) % Eos % (Auto) (2-4) % Baso % (Auto) (0-2) % Neut # (Auto) (0174-0857) /uL Lymph # (Auto) (3084-4965) /uL [place] # (Auto) (0-900) /uL Eos # (Auto) (0-450) /uL Baso # (Auto) (0-100) /uL PT (10.1-12.7) SECONDS INR (0.9-1.3) APTT (26.4-36.2) SECONDS Sodium (137-145) mmol/L Potassium (3.4-5.1) mmol/L Chloride (98-107) mmol/L Carbon Dioxide (22-32) mmol/L BUN (9-20) mg/dL Creatinine (0.66-1.25) mg/dL Estimated GFR (>60) mL/min BUN/Creatinine Ratio (6-22) Glucose (80-110) mg/dL Calcium (8.4-10.2) mg/dL Troponin I < 0.012 (0.01-0.034) ng/mL B-Natriuretic Peptide (<100) Imaging Data Chest x-ray: Attestation: I personally reviewed and interpreted this imaging study as follows: My impression: Bilateral patchy airspace disease No pneumothorax, Radiologist's impression: [address] [address] XRay Report Signed Patient: Duc Hughes R#: [id number] : 4Acct:[id number] Age/Sex: 63 / MDate of Service: 01/23/19 Loc: ED Accession Number: [id number] Procedure: XR chest 1V Ordering Provider: Agusto Tran D.O. PROCEDURE: XR CHEST 1V INDICATIONS: Shortness of breath TECHNIQUE: One view of the chest was acquired. [facility]. FINDINGS: Surgical changes and devices: Sternotomy wires and CABG clips.. Lungs and pleura: Bilateral, diffuse hazy and patchy groundglass opacities s cattered throughout both upper and lower lobes. No definite focal consolidation. Irvin B-lines noted in the lung bases Mediastinum: Mediastinal contours appear normal. Heart size is enlarged. Bones and chest wall: No suspicious bony lesions. Overlying soft tissues appear unremarkable. IMPRESSION: Pulmonary edema, which has developed since 09/03/18. No focal consolidation. Cardiomegaly. Dictated by: Germain Ruby M.D. on 01/23/2019 at 8:36 Approved by: Germain Ruby M.D. on 01/23/2019 at 8:43 CT scan - chest: Radiologist's impression: [place] [address] CT Scan Report Signed Patient: Duc Hughes RMR#: [id number] : 4Acct:[id number] Age/Sex: 63 / MDate of Service: 01/23/19 Loc: ED Accession Number: [id number] Procedure: CT angio chest PE protocol Ordering Provider: Agusto Tran D.O. PROCEDURE: CT ANGIO CHEST PE PROTOCOL INDICATIONS: Shortness of breath TECHNIQUE: After the administration of intravenous contrast, 2 mm thick sections acquired from the pulmonary apices to the posterior costophrenic angles. 3-dimensional maximum intensity projection (MIP) coronal and sagittal reformats were then acquired through the thorax. For radiation dose reduction, the following was used: automated exposure control, adjustment of mA and/or kV according to patient size. COMPARISON: [facility], CR, XR CHEST 1V, 09/03/2018, 11:33. [facility], , XR CHEST 1V, 01/23/2019, 4:09. FINDINGS: Image quality: Excellent. Pulmonary arteries: Pulmonary arteries are normal in size, and demonstrate no intraluminal filling defects to suggest central pulmonary embolism. Lungs and pleura: Diffuse bibasilar thickening of the interlobular septal lines with smooth appearance. There is also marked diffuse bronchial wall thickening in keeping with chronic bronchitis and/or reactive airways disease. Scattered hazy and ground glass opacities are present. Bilateral small pleural effusions with adjacent atelectasis. No pneumothorax. No focal consolidation. Upper lobe blebs noted. Mediastinum: Heart size is enlarged, without pericardial effusion. Coronary artery disease. Enlarged right paratracheal lymph node, nonspecific finding. No mediastinal adenopathy seen. Reflux of IV contrast in the hepatic veins suggesting decreased cardiac output. Scattered vascular calcifications seen in the aorta. Thoracic aorta is normal in caliber and enhancement. Esophagus is normal in caliber, without hiatal hernia. Bones and chest wall: No suspicious bony lesions. Ribs and thoracic spine appear intact throughout. Thyroid gland unremarkable. No axillary or supraclavicular adenopathy. Abdomen: Gallbladder is only partially visualized however there is some hazy a ppearance to the pericholecystic fat raising possibility of inflammation. IMPRESSION: No evidence of pulmonary embolism. Pulmonary edema and small bilateral pleural effusions. No focal consolidation Marked central airway thickening in keeping with chronic bronchitis and/or reactive airways disease. Hazy attenuation to the pericholecystic fat raising possibility of inflammatory change, however not entirely included on examination. If there is sufficient clinical concern, dedicated gallbladder ultrasound could be performed as needed. Additional chronic and incidental findings as above. Findings concordant with the preliminary study interpretation provided at the time of the exam. Findings were personally discussed with Dr. Tran in the emergency department at 0833 hours 01/23/19. Dictated by: Germain Ruby M.D. on 01/23/2019 at 8:23 Approved by: Germain Ruby M.D. on 01/23/2019 at 8:34 ECG Data Attestation: I personally reviewed and interpreted this ECG as follows: Prior ECG tracings: available for review Interpretation: Atrial fibrillation Ventricular rate 85 Occasional PVC Normal axis Significant artifact making ST evaluation not reliable Repeat EKG Atrial fibrillation Occasional PVC Ventricular rate 86 Normal axis Q-wave in [address] wave changes MDM Narrative Medical decision making narrative: Patient arrived hypoxic into the high 80s. He is in atrial fibrillation but his rate controlled. Does sound like he has a history of paroxysmal AFib. He is on Eliquis. He denies any history of COPD but does have a significant smoking history. No history of asthma. He also states that he has no history of COPD. Patient did sound very wheezing and crackles. He did improve after 2 albuterol nebs and 1 DuoNeb. He stated that h e felt back to normal again. He was no longer tachypneic. Oxygen saturations however in the low 90s. Patient ambulated without becoming short of breath. chest x-ray does show bilateral patchy infiltrates. CT scan was ordered for further evaluation of these. The CT scan is concerning for pulmonary edema/fluid overload however his BNP is unremarkable. He clinically is not in heart failure. Troponins were negative x2. Did discuss the case with on-call Cardiology prior to the CT scan who stated that if his 2nd troponin was negative given his lack of chest pain and other symptoms that they did not feel that he needed evaluated emergently for further cardiac issues. Plan will be is to give the patient Lasix here in the emergency department. Will send home with Lasix. 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 He was given strict return precautions. Patient was okay with going home. He said he felt very well. Will also send home with an inhaler since this seemed to help him during his initial time. Patient his who is at bedside expres sed understanding and agreement plan. Discharge Plan Departure Patient Disposition: Home Clinical Impression: Shortness of Breath Pulmonary edema Qualifiers: Chronicity: acute Qualified Code(s): J81.0 - Acute pulmonary edema Instructions: DI for Shortness of Breath Activity Restrictions/Additional Instructions: Start taking the Lasix tomorrow 01/24/19. I also recommend that you contact your associate store manager later today. Tell him that you were seen in the emergency department number treated for and excess fluid on your lungs and started on Lasix. Asked him if he would recommend that you get a echocardiogram. Also recommend you contact your primary provider. Continue all of your medications as directed. Return to the emergency department for any new or worsening symptoms Prescriptions: New furosemide [Lasix] 20 mg tablet 20 mg PO DAILY Qty: 30 RF: 0 No Action metformin 500 mg tablet 500 mg PO BID RF: 0 atorvastatin 80 mg tablet 80 mg PO QPM RF: 0 aspirin 81 mg tablet,delayed release (DR/EC) 81 mg PO DAILY RF: 0 magnesium oxide 400 mg (241.3 mg magnesium) tablet 400 mg PO BID RF: 0 amlodipine 10 mg tablet 10 mg PO DAILY RF: 0 losartan 25 mg tablet 6.25 mg PO QPM RF: 0 metoprolol succinate 25 mg tablet extended release 24 hr 25 mg PO DAILY RF: 0 Eliquis 5 mg tablet 5 mg PO BID RF: 0 Referrals: Arturo Regalado MD [Primary Care Provider] -
[2019-01-23 03:59] LABS: Add Manual Diff / Slide Review NO; Basophils Absolute Auto 100 /uL (0-100); Eosinophils Absolute Auto 100 /uL (0-450); Eosinophils Percent Auto 1.4 % (2-4); Hematocrit 40.1 % (41-53); Hemoglobin 13.1 g/dL (13.5-17.5); Lymphocytes Absolute Auto 1600 /uL (1100-4500); Lymphocytes Percent Auto 17.1 % (25-40); Mean Corpuscular HGB Conc 32.6 % (30-36); Mean Corpuscular Hemoglobin 28.5 PG (26-34); Mean Corpuscular Volume 87.7 fL (80-100); Monocytes Absolute Auto 600 /uL (0-900); Monocytes Percent Auto 6.4 % (3-14); Neutrophils Absolute Auto 6700 /uL (1500-7000); Neutrophils Percent Auto 74.1 % (50-75); Platelet Count 186 X10^3/uL (150-400); Red Blood Cell Count 4.57 X10^6/uL (4.5-5.9); Red Cell Distribution Width 14.2 % (11.6-14.8); White Blood Cell Count 9.1 X10^3/uL (4.5-11.0)
[2019-01-23 04:06] LABS: INR 1.1 (0.9-1.3); Prothrombin Time 12.7 SECONDS (10.1-12.7)
[2019-01-23] MEDS: ALBUTEROL 2.5 MG/3 ML NEB (ADULT) 5 MG INH (04:06)
[2019-01-23 04:09] LABS: PTT Partial Thromboplastin Tim 32 SECONDS (26.4-36.2)
[2019-01-23 04:10] LABS: BUN Creatinine Ratio 23.3 (6-22); Blood Urea Nitrogen 28 mg/dL (9-20); Calcium 9.4 mg/dL (8.4-10.2); Carbon Dioxide 27 mmol/L (22-32); Chloride 99 mmol/L (98-107); Estimated Glomerular Filt Rate > 60.0 mL/min (>60); Glucose 221 mg/dL (80-110); HEMOLYSIS < 15 (0-50); Potassium 4.8 mmol/L (3.4-5.1); Sodium 137 mmol/L (137-145)
[2019-01-23 04:22] LABS: Troponin I 0.014 ng/mL (0.01-0.034)
[2019-01-23] MEDS: ALBUTEROL/IPRATROPIUM 3 ML AMPUL INH (04:25)
[2019-01-23 04:27] LABS: B Type Natriuretic Peptide 130 (<100)
--- NOTE | 2019-01-23 06:36 | DI.CT.S_ITS ---
PROCEDURE: CT ANGIO CHEST PE PROTOCOL INDICATIONS: Shortness of breath TECHNIQUE: After the administration of intravenous contrast, 2 mm thick sections acquired from the pulmonary apices to the posterior costophrenic angles. 3-dimensional maximum intensity projection (MIP) coronal and sagittal reformats were then acquired through the thorax. For radiation dose reduction, the following was used: automated exposure control, adjustment of mA and/or kV according to patient size. COMPARISON: [facility], CR, XR CHEST 1V, 09/03/2018, 11:33. [facility], CR, XR CHEST 1V, 01/23/2019, 4:09. FINDINGS: Image quality: Excellent. Pulmonary arteries: Pulmonary arteries are normal in size, and demonstrate no intraluminal filling defects to suggest central pulmonary embolism. Lungs and pleura: Diffuse bibasilar thickening of the interlobular septal lines with smooth appearance. There is also marked diffuse bronchial wall thickening in keeping with chronic bronchitis and/or reactive airways disease. Scattered hazy and ground glass opacities are present. Bilateral small pleural effusions with adjacent atelectasis. No pneumothorax. No focal consolidation. Upper lobe blebs noted. Mediastinum: Heart size is enlarged, without pericardial effusion. Coronary artery disease. Enlarged right paratracheal lymph node, nonspecific finding. No mediastinal adenopathy seen. Reflux of IV contrast in the hepatic veins suggesting decreased cardiac output. Scattered vascular calcifications seen in the aorta. Thoracic aorta is normal in caliber and enhancement. Esophagus is normal in caliber, without hiatal hernia. Bones and chest wall: No suspicious bony lesions. Ribs and thoracic spine appear intact throughout. Thyroid gland unremarkable. No axillary or supraclavicular adenopathy. Abdomen: Gallbladder is only partially visualized however there is some hazy appearance to the pericholecystic fat raising possibility of inflammation. IMPRESSION: No evidence of pulmonary embolism. Pulmonary edema and small bilateral pleural effusions. No focal consolidation Marked central airway thickening in keeping with chronic bronchitis and/or reactive airways disease. Hazy attenuation to the pericholecystic fat raising possibility of inflammatory change, however not entirely included on examination. If there is sufficient clinical concern, dedicated gallbladder ultrasound could be performed as needed. Additional chronic and incidental findings as above. Findings concordant with the preliminary study interpretation provided at the time of the exam. Findings were personally discussed with Dr. Tran in the emergency department at 0833 hours 01/23/19. Dictated by: Germain Ruby M.D. on 01/23/2019 at 8:23 Approved by: Germain Ruby M.D. on 01/23/2019 at 8:34
[2019-01-23] MEDS: SODIUM CHLORIDE 0.9% 1,000 ML 500 ML IV (06:42)
[2019-01-23 06:45] LABS: Troponin I < 0.012 ng/mL (0.01-0.034)
[2019-01-23 07:38] VITALS: BP 161/73; PULSE 95; RESP 16; O2SAT 95
[2019-01-23] MEDS: FUROSEMIDE 40 MG/4 ML VIAL IV (09:08)
[2019-01-23] MEDS: ALBUTEROL HFA PREPACK 1 BOX MISC (09:27)
[2019-01-23 09:28] VITALS: BP 158/77; PULSE 76; RESP 19; O2SAT 95
[2019-01-23 09:45] VITALS: PULSE 79; RESP 20; O2SAT 94
[2019-01-23 09:59] VITALS: BP 158/67; PULSE 88; RESP 16; TEMP 36.7; O2SAT 96
== END 2019-01-23 10:00 | disposition home or self-care (01) ==
PROVIDERS: Emergency Provider Emergency Medicine; PCP Internal Medicine
DX: R06.02 Shortness of breath (principal); J81.0 Acute pulmonary edema; I48.91 Unspecified atrial fibrillation; Z79.01 Long term (current) use of anticoagulants
CPT/HCPCS: 36415; 71045; 71275; 80048; 83880; 84484; 85025; 85610; 85730; 93005; 94640; 96361; 96374; 99283; 99285; J1940; J7613; Q9967